=== PATIENT | female | born 2000 | race Caucasian/White ===

== ENCOUNTER 2019-09-21 23:12 | Emergency (ER) | payer BC, OTHER, SELFPAY ==
[2019-09-21 23:16] VITALS: BP 120/61; PULSE 85; RESP 18; TEMP 36.5; O2SAT 100
--- NOTE | 2019-09-22 00:17 | PC.NURSE ---
[facility] notified pt is in the dept.
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
[2019-09-22 03:13] LABS: HIV 1/2 Ab P24 Ag Result Negative (Negative)
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
[2019-09-22 04:05] VITALS: BP 116/60; PULSE 62; RESP 14; O2SAT 98
--- NOTE | 2019-09-22 04:17 | PC.NURSE ---
exam and wound care complete; internal vaginal exam done by Dr. Baez and internal swabs obtained by Dr. Baez. Flagyl given - unable to document on the MAY.
[2019-09-22] MEDS: AZITHROMYCIN 250 MG TABLET 1000 MG PO (04:30)
[2019-09-22] MEDS: cefTRIAXone 250 MG VIAL IM (04:30)
[2019-09-22] MEDS: ONDANSETRON HCL ODT 4 MG TABLET PO (04:30)
[2019-09-22] MEDS: metroNIDAZOLE 250 MG TABLET 2000 MG PO (04:30)
[2019-09-22] MEDS: LIDOCAINE HCL 1% LOCAL INJ 20 ML VIAL (04:30)
[2019-09-22] MEDS: ULIPRISTAL ACETATE 30 MG TABLET PO (04:30)
[2019-09-22] MEDS: DOXYCYCLINE HYCLATE 100 MG TABLET PO (04:30)
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
[2019-09-22] MEDS: EMTRICITABINE-TENOFOVIR 100 MG-150 MG TABLET 1 TAB PO (05:10)
[2019-09-22] MEDS: RALTEGRAVIR 400 MG TABLET PO (05:10)
--- NOTE | 2019-09-22 05:58 | PC.NURSE ---
Pt. selected option C for consent for evidence collection but consented to toxicology -- evidence be collected and tested. Pt. made aware in doing so she was signing consent and providing identifying information. Pt. voiced understanding and signed Option A consent to toxicology testing at 0148.
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
--- NOTE | 2019-09-22 06:22 | PC.NURSE ---
[facility] called, aware consent for advocacy needs to be picked up today and are to contact assistant offset press operator on duty.
--- NOTE | 2019-09-23 11:02 | PC.NURSE ---
Kit, 3 paper bags of evidence, urine specimen and associated paperwork picked up by Officer LESTER [address], [place] [employer].
== END 2019-09-22 05:20 | disposition home or self-care (01) ==
LOC: ANHED 09-22 04:46
PROVIDERS: Emergency Provider Emergency Medicine; PCP Family Medicine
DX: T74.21XA Adult sexual abuse, confirmed, initial encounter (principal); Y07.9 Unspecified perpetrator of maltreatment and neglect; F17.210 Nicotine dependence, cigarettes, uncomplicated
CPT/HCPCS: 36415; 81025; 86703; 96372; 99285; A9270; G0432; J0696

== ENCOUNTER 2020-09-05 18:08 | Emergency (ER) | payer BC, SELFPAY ==
[2020-09-05 18:40] VITALS: BP 123/65; PULSE 92; RESP 18; TEMP 36.6; O2SAT 95
--- NOTE | 2020-09-05 19:30 | ED.GENADULT ---
HPI - General Adult General Chief complaint: Skin/Abscess/Foreign Body Stated complaint: SKIN ABSCESS Time Seen by Provider: 09/05/20 19:11 Source: patient and RN notes reviewed Mode of arrival: ambulatory Limitations: no limitations History of Present Illness HPI narrative: Patient is a 19-year-old female who presents to emergency department with wound to the mid forehead for the last 2 weeks patient notes she has attempted to cedrick the lesion herself patient notes history of staph infection denies fever chills nausea vomiting. Related Data Allergies Allergy/AdvReac Type Severity Reaction Status Date / Time Sulfa (Sulfonamide Allergy Unknown Unknown Verified 09/05/20 18:43 Antibiotics) Review of Systems Review of Systems: All systems reviewed & are unremarkable except as noted in HPI and below PMFSH Surgical History Surgical History History of eye surgery Family History Family History (Updated 12/01/18 @ 16:24 by DOCTOR UNKNOWN) Other Cerebrovascular accident Family history of alcoholism Family history of thyroid disease Social History Social History Smoking status: Current every day smoker Alcohol intake: current Substance use: current Substance use type: marijuana and methamphetamine Gender identity (if verbalized by the patient): Female Exam Narrative: Exam Narrative: GENERAL: Well-appearing, well-nourished, and in no acute distress. HEAD: Normocephalic, atraumatic. EYES: PERRLA and EOMI. ENT: Nares clear, no rhinorrhea or epistaxis. Mucous membranes moist. CHEST: Clear to auscultation. No respiratory distress. No wheezes rales or rhonchi HEART: Regular rate and rhythm. No murmur heard. EXTREMITIES: Normal range of motion. No edema. SKIN: Warm, dry, no rash. 2 cm fluctuant lesion mid forehead with half centimeter open area in the middle of the lesion NEURO: No focal deficits. Alert and oriented x3. PSYCH: Normal mood and affect. Course Course Emergency Course: Lesion of the forehead was I&D to impact in the emergency department wound cultures were obtained medications were given and sent with the patient she agrees to follow-up as instructed Vital Signs Vital signs: Vital Signs Temperature 97.9 F 09/05/20 18:40 Pulse Rate 92 09/05/20 18:40 Respiratory Rate 18 09/05/20 18:40 Blood Pressure 123/65 09/05/20 18:40 Pulse Oximetry 95 09/05/20 18:40 Temperature 97.9 F 09/05/20 18:40 Pulse Rate 92 09/05/20 18:40 Respiratory Rate 18 09/05/20 18:40 Blood Pressure 123/65 09/05/20 18:40 Pulse Oximetry 95 09/05/20 18:40 Procedures Abscess I/D face: Date of Incision: 09/05/20 Time of Incision: 19:32 Local Anesthetic: lidocaine 1% Technique: incised with #11 blade Amount of fluid expressed (mL): 2 Irrigation: No Packing used?: iodoform I&D Results: Pus Complications: pain Medical Decision Making MDM Narrative Medical decision making narrative: I&D of abscess performed in the emergency department will be discharged home with outpatient follow-up agreement with this plan Vital Signs Vital Signs: Vital Signs Temperature 97.9 F 09/05/20 18:40 Pulse Rate 92 09/05/20 18:40 Respiratory Rate 18 09/05/20 18:40 Blood Pressure 123/65 09/05/20 18:40 Pulse Oximetry 95 09/05/20 18:40 Temperature 97.9 F 09/05/20 18:40 Pulse Rate 92 09/05/20 18:40 Respiratory Rate 18 09/05/20 18:40 Blood Pressure 123/65 09/05/20 18:40 Pulse Oximetry 95 09/05/20 18:40 Discharge Plan Discharge Clinical Impression: Abscess of skin or subcutaneous tissue Patient Disposition: Home, Self-Care Condition: Stable Instructions: Antibiotic Form, Abscess (ED) Additional Instructions: Follow up with primary care in the next 2-3 days for re-evaluation and pack
[2020-09-05] MEDS: IBUPROFEN 600 MG TABLET PO (19:38)
[2020-09-05] MEDS: DOXYCYCLINE HYCLATE 100 MG TABLET PO (19:38)
--- NOTE | 2020-09-05 19:42 | PC.NURSE ---
attempted to call pts ride x2 with no answer. Pt ambulated out of the department.
== END 2020-09-05 19:42 | disposition home or self-care (01) ==
PROVIDERS: Emergency Provider Emergency Medicine; PCP Family Medicine
DX: L02.01 Cutaneous abscess of face (principal)
CPT/HCPCS: 10061; 87070; 87075; 87147; 87186; 87205; 99283; A9270

== ENCOUNTER 2020-10-02 18:35 | Emergency (ER) | payer BC, SELFPAY ==
[2020-10-02 18:42] VITALS: BP 119/65; PULSE 79; RESP 16; TEMP 36.6; O2SAT 99
[2020-10-02 18:46] VITALS: BP 119/65; PULSE 79; RESP 16; TEMP 36.6; O2SAT 99
--- NOTE | 2020-10-02 19:12 | ED.GENADULT ---
HPI - General Adult General Chief complaint: Upper Respiratory Infection Stated complaint: Congestion Source: patient Mode of arrival: ambulatory Limitations: no limitations History of Present Illness HPI narrative: Patient presents for evaluation of bilateral ear pain for the last week. She states the pain is constant she is also noted some fluid draining from both ears. She denies any hearing loss or tinnitus. No fever, chills, nausea, vomiting, sore throat, respiratory symptoms. She states she went swimming approximately 1 week ago. She also reports trying to pick at (her) ears . She has not tried any therapies for her symptoms. She would like a script for tylenol. Related Data Allergies Allergy/AdvReac Type Severity Reaction Status Date / Time Sulfa (Sulfonamide Allergy Unknown Unknown Verified 10/02/20 18:42 Antibiotics) Review of Systems Review of Systems: Narrative: CONSTITUTIONAL: Denies fever, chills, or sweats. EYES: Denies visual changes, redness, or discharge. ENT: Reports bilateral otalgia with drainage from both ears. Denies rhinorrhea, congestion, sore throat CARDIOVASCULAR: Denies chest pain, palpitations, or edema. RESPIRATORY: Denies cough or dyspnea. GASTROINTESTINAL: Denies abdominal pain, nausea, vomiting, or diarrhea. GENITOURINARY: Denies dysuria or hematuria. SKIN: Denies rash or itching. MUSCULOSKELETAL: Denies back pain, joint pain, or myalgia. NEUROLOGIC: Denies headache, numbness, dizziness, or weakness. PSYCHIATRIC: Denies anxiety or depression. [facility] Past Medical History Medical History No pertinent past medical history Surgical History Surgical History History of eye surgery Family History Family History Other Cerebrovascular accident Family history of alcoholism Family history of thyroid disease Social History Social History (Updated 10/02/20 @ 19:13 by MANOHAR DaleP, ) Smoking packs per day: 1 Smoking cigarettes per day: 20.0 Smoking status: Current every day smoker Alcohol intake: current Substance use: current Substance use type: marijuana and methamphetamine Living arrangements: alone Gender identity (if verbalized by the patient): Female Spiritual care concerns: No Exam Narrative: Exam Narrative: GENERAL: Well-appearing, well-nourished, and in no acute distress. HEAD: Normocephalic, atraumatic. EYES: PERRLA and EOMI. ENT: Nares clear, no rhinorrhea or epistaxis. Mucous membranes moist. Oropharynx without tonsillar hypertrophy exudate or other lesions. Bilateral TMs pearly martinez nonbulging. No ear canals are edematous and there is white exudate noted in both ear canals NECK: Supple. No adenopathy or masses. No carotid bruits or JVD CHEST: Clear to auscultation. No respiratory distress. No wheezes rales or rhonchi HEART: Regular rate and rhythm. No murmur heard. Normal peripheral pulses. ABDOMEN: Soft, nontender, nondistended, normal active bowel sounds. EXTREMITIES: Normal range of motion. No edema. SKIN: Warm, dry, no rash. NEURO: No focal deficits. Alert and oriented x3. PSYCH: Normal mood and affect. Course Course Emergency Course: This is a 19-year-old female who presents with complaints of bilateral ear pain and drainage. Physical exam is consistent with otitis externa. Will prescribe some otic preparation antibiotics and then also send her home with some Tylenol per request. She should follow-up outpatient for further evaluation and treatment return for worsening symptoms. Patient agreement plan of care. Vital Signs Vital signs: Vital Signs Temperature 36.6 C 10/02/20 18:42 Pulse Rate 79 10/02/20 18:42 Respiratory Rate 16 10/02/20 18:42 Blood Pressure 119/65 10/02/20 18:42 Pulse Oximetry 99 10/02/20 18:42 Temperat
== END 2020-10-02 19:18 | disposition home or self-care (01) ==
PROVIDERS: Emergency Provider Nurse Practitioner; PCP Family Medicine
DX: H60.93 Unspecified otitis externa, bilateral (principal); F17.210 Nicotine dependence, cigarettes, uncomplicated
CPT/HCPCS: 99213; G0463

== ENCOUNTER 2021-02-18 17:11 | Emergency (ER) | payer BC, SELFPAY ==
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
[2021-02-18 17:19] VITALS: BP 137/92; PULSE 87; RESP 18; TEMP 36.1; O2SAT 99
[2021-02-18] MEDS: ONDANSETRON HCL ODT 4 MG TABLET PO (17:47)
[2021-02-18] MEDS: MAG HYDROX/AL HYDROX/SIMETH 30 ML UDC PO (17:48)
[2021-02-18] MEDS: LIDOCAINE HCL 2% VISC SOLN 15 ML UDC PO (17:48)
== END 2021-02-18 18:30 | disposition home or self-care (01) ==
PROVIDERS: Emergency Provider Nurse Practitioner Family; PCP Family Medicine
DX: K21.9 Gastro-esophageal reflux disease without esophagitis (principal); F17.210 Nicotine dependence, cigarettes, uncomplicated
CPT/HCPCS: 81003; 81025; 87077; 87086; 87088; 87186; 99213; A9270; G0463

== ENCOUNTER 2021-10-16 16:48 | Emergency (ER) | payer BC, SELFPAY ==
--- NOTE | ~2021-10-16 | XR_ITS ---
XR foot LT min 3V 10/16/2021 17:10 Indication: Left foot pain Procedure: 4 views left foot Comparison: No prior studies for comparison. Findings: There is a mildly displaced oblique fracture involving the distal aspect of the fifth metat arsal. No intra-articular extension. No other fracture or dislocation. Lisfranc joint is intact. Impression: 1: Mildly displaced oblique extra-articular fracture distal aspect of the left fifth metatarsal. Reviewed, dictated and finalized at location A. Impression: 1: Mildly displaced oblique extra-articular fracture distal aspect of the left fifth metatarsal.
[2021-10-16 16:50] VITALS: BP 132/85; PULSE 117; RESP 15; TEMP 36.9; O2SAT 100
--- NOTE | 2021-10-16 17:13 | ED.LOWEXIN ---
HPI - Extremity Injury (Lower) General Chief Complaint: Extremity Injury, Lower Stated Complaint: Possible Broken Left Foot Time Seen by Provider: 10/16/21 16:58 Source: RN notes reviewed History of Present Illness HPI Narrative: Patient presents emergency department from home for left foot pain. Patient states she was trying to sneak down the stairs in the [place] last night when she tripped and fell down approximately 3 stairs. She states she rolled onto her left foot at that time and has had pain in the left lateral foot states the pain is worse with ambulating but improves when she sits or is off her feet she denies any other trauma or injury she states she did not take anything for the pain denies any numbness or tingling in the extremities Related Data Allergies Allergy/AdvReac Type Severity Reaction Status Date / Time Sulfa (Sulfonamide Allergy Unknown Unknown Verified 02/18/21 17:25 Antibiotics) Review of Systems Review of Systems: Gen.: Denies fevers or chills Musculoskeletal: See HPI Neuro: Denies numbness, tingling, weakness Skin: Denies rash Endo: Denies DM PMFSH Past Medical History Medical History No pertinent past medical history Surgical History Surgical History History of eye surgery Family History Family History Other Cerebrovascular accident Family history of alcoholism Family history of thyroid disease Social History Social History Smoking packs per day: 1 Smoking cigarettes per day: 20.0 Smoking status: Current every day smoker Alcohol intake: current Substance use: current Substance use type: marijuana and methamphetamine Gender identity (if verbalized by the patient): Female Spiritual care concerns: No Exam Narrative: APPEARANCE: No acute distress, nontoxic, resting in bed Eyes: EOMI HEENT: Normocephalic, atraumatic, RESPIRATORY: No respiratory distress MUSCULOSKELETAl: Tender palpation over the left dorsal lateral foot region of the fifth metatarsal mild swelling no ecchymosis no tenderness of the remainder of the foot no tenderness of the ankle or knee no proximal fibular tenderness dorsalis pedis pulse 2+ neurovascular NEURO: Awake and alert. Following commands, speech normal, no focal deficits SKIN:: Warm, dry. Normal Color no rash or lesions Course Course Emergency Course: Discussed with patient results of workup and diagnosis. Discussed need for follow-up with primary care, proper use of medication, and reasons to return to the emergency department. Patient understands and agrees to current treatment plan Vital Signs Vital signs: Vital Signs Temperature 98.4 F 10/16/21 16:50 Pulse Rate 117 H 10/16/21 16:50 Respiratory Rate 15 10/16/21 16:50 Blood Pressure 132/85 10/16/21 16:50 Pulse Oximetry 100 10/16/21 16:50 Temperature 98.4 F 10/16/21 16:50 Pulse Rate 117 H 10/16/21 16:50 Respiratory Rate 15 10/16/21 16:50 Blood Pressure 132/85 10/16/21 16:50 Pulse Oximetry 100 10/16/21 16:50 MDM - Extremity Injury (Lower) Imaging Data Radiologist's impression: ITS Impressions Foot X-Ray 10/16/21 17:11 Impression: 1: Mildly displaced oblique extra-articular fracture distal aspect of the left fifth metatarsal. Discharge Plan Discharge Clinical Impression: Fracture of fifth metatarsal bone of left foot Qualifiers: Encounter type: initial encounter Fracture type: closed Fracture alignment: displaced Qualified Code(s): S92.352A - Displaced fracture of fifth metatarsal bone, left foot, initial encounter for closed fracture Patient Disposition: Home, Self-Care Condition: Stable Instructions: Antibiotic Form, Foot Fracture in Adults (ED) Additional Instructions: Return for
== END 2021-10-16 17:40 | disposition home or self-care (01) ==
LOC: ANHED 17:26
PROVIDERS: Emergency Provider Emergency Medicine; PCP Family Medicine
DX: S92.352A Displaced fracture of fifth metatarsal bone, left foot, initial encounter for closed fracture (principal); F17.210 Nicotine dependence, cigarettes, uncomplicated; W10.9XXA Fall (on) (from) unspecified stairs and steps, initial encounter
CPT/HCPCS: 73630; 99284

== ENCOUNTER 2023-11-07 16:47 | Emergency (ER) | payer BC, SELFPAY ==
[2023-11-07 16:53] VITALS: BP 114/64; PULSE 97; RESP 16; TEMP 36.6; O2SAT 100
--- NOTE | 2023-11-07 17:19 | ED.WOUNDLAC ---
HPI - Wound/Laceration General Chief Complaint: Wound/Laceration Stated Complaint: Wound Check/Sore Throat Source: patient Mode of arrival: ambulatory Limitations: no limitations History of Present Illness HPI narrative: 23-year-old female presented for complaint of an open wound to the right thigh worsening over the past 2 weeks. She reports drainage over the past couple of days. She has picked at it and attempted to drain it herself. She has been cleaning it daily with hydrogen peroxide. patient also reports scattered boils under axilla, stating she gets cysts often and was told she might have HS. Patient also reports a sore throat. She is concerned for COVID. She denies shortness of breath, wheezing, nausea, vomiting, fevers or lethargy. Related Data Allergies Allergy/AdvReac Type Severity Reaction Status Date / Time Sulfa (Sulfonamide Allergy Unknown Difficulty Verified 11/07/23 17:05 Antibiotics) Breathing Review of Systems Review of Systems: CONSTITUTIONAL: Denies body aches, fever, chills, or sweats. EYES: Denies visual changes, redness, or discharge. ENT: Denies rhinorrhea, congestion CARDIOVASCULAR: Denies chest pain, palpitations, or edema. RESPIRATORY: Denies cough or dyspnea. GASTROINTESTINAL: Denies abdominal pain, nausea, vomiting, or diarrhea. SKIN: Reports skin wound right thigh MUSCULOSKELETAL: Denies back pain, joint pain, or myalgia. NEUROLOGIC: Denies headache, numbness, tingling, or weakness. [facility] Past Medical History Medical History Abnormality of heart beat Bleeding nose Hyperthyroidism No pertinent past medical history Surgical History Surgical History History of eye surgery Strabismus 2007 Family History Family History Other Cerebrovascular accident Family history of alcoholism Family history of thyroid disease Social History Social History Smoking packs per day: 1 Smoking cigarettes per day: 20.0 Years smoked: 7 Smoking pack-years: 7.00 Smoking status: Current every day smoker Tobacco type: cigarettes Alcohol intake: current Substance use: current Substance use type: marijuana and methamphetamine Living arrangements: alone Occupation/Education: occupation 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 Please see nursing chart for further information. There is no relevant family history pertinent to the presenting complaint Exam Narrative: GENERAL: Well-appearing ENT: Mucous membranes moist. Oropharynx without edema, erythema or lesions. NECK: Supple. No lymphadenopathy CHEST: Clear to auscultation. HEART: Regular rate and rhythm. SKIN: Warm, dry. right medial thigh: [id number] diameter area of erythema, center with 1cm diameter open wound 0.5cm deep with purulent drainage; surrounding skin is tender, no streaking. Bruising noted to bilateral upper arms. Right axilla with firm abscess, tender. NEURO: Alert and oriented x3. Course Course Emergency Course: Patient is aware of diagnosis, understands and agrees to treatment plan. Anticipatory guidance given. Patient agrees to follow-up as directed and is aware of reasons to seek care at the emergency department. Portions of this record may have been created with voice recognition software Level of Care: Express Care Visit Vital Signs Vital signs: Vital Signs Temperature 97.8 F 11/07/23 16:53 Pulse Rate 97 11/07/23 16:53 Respiratory Rate 16 11/07/23 16:53 Blood Pressure 114/64 11/07/23 16:53 Pul
== END 2023-11-07 17:59 | disposition home or self-care (01) ==
PROVIDERS: Emergency Provider Nurse Practitioner Family; PCP Family Medicine
DX: L02.415 Cutaneous abscess of right lower limb (principal); Z20.822 Contact with and (suspected) exposure to COVID-19; F17.210 Nicotine dependence, cigarettes, uncomplicated; F12.90 Cannabis use, unspecified, uncomplicated; F15.90 Other stimulant use, unspecified, uncomplicated; E05.90 Thyrotoxicosis, unspecified without thyrotoxic crisis or storm
CPT/HCPCS: 87426; 99213; G0463

== ENCOUNTER 2024-06-09 09:31 | Emergency (ER) | payer BC, SELFPAY ==
[2024-06-09] VITALS (10 sets, daily range): BP systolic 114–149; BP diastolic 61–97; PULSE 93–135; RESP 9–20; TEMP 36.6; O2SAT 100
--- NOTE | ~2024-06-09 | CT_ITS ---
Clinical Indication: Chest pain CT Scan of the Chest with Contrast: Technique: Contiguous sections were acquired throughout the chest after intravenous administration of 100 cc of Omnipaque 350. Dose reduction technique was used on this scan by utilizing automated expos ure control and iterative reconstruction technique. The dose-length product (DLP) was 316.78 mGy-cm. Findings: There is no evidence of any significant mediastinal, hilar or axillary lymphadenopathy. There is no f illing defect in the pulmonary arterial tree to suggest pulmonary embolus. There is no evidence of ao rtic dissection or aneurysm. There is no evidence of pleural or pericardial effusion. The lungs are clear. No pulmonary nodules or infiltrates are noted. Images through the upper abdomen reveal no abnormalities. Impression: No evidence of pulmonary embolus, aortic dissection, or aortic aneurysm. Clear lungs. Reviewed, dictated and finalized at [facility]. Impression: No evidence of pulmonary embolus, aortic dissection, or aortic aneurysm. Clear lungs.
--- NOTE | ~2024-06-09 | XR_ITS ---
Clinical Indication: Chest pain PA and lateral views of the chest: Comparison: None Findings: The lungs are clear, without evidence of focal consolidation or pleural effusion. Cardiome diastinal silhouette is within normal limits. Bones and soft tissues are unremarkable. Impression: Normal chest. Reviewed, dictated and finalized at location . Impression: Normal chest.
--- NOTE | 2024-06-09 09:32 | ECG_ITS ---
Test Date: 2024-06-09 09:42:58 Measurements Intervals [place] Rate: 147 P: 0 OR: 0 QRS: 78 QRSD: 78 T: 64 QT: 320 QTc: 502 Interpretive Statements SINUS TACHYCARDIA WITH ATRIAL PREMATURE CONTRACTIONS NONSPECIFIC ST & T-WAVE ABNORMALITY ABNORMAL ECG Electronically Signed On 06-10-2024 11:41:13 CDT by Feliz Becerra M.D.
--- NOTE | 2024-06-09 10:17 | ED.CHESTPAIN ---
HPI - Chest Pain General Chief Complaint: Chest Pain Stated Complaint: chest pain, dyspnea Time Seen by Provider: 06/09/24 10:16 Source: patient Mode of arrival: ambulatory Limitations: no limitations History of Present Illness HPI narrative: This is a 23 year old female who presents to the ED for chief complaint of chest pain beginning around midnight. Patient states that she was lying down getting ready to go to sleep when she started have pain on the left side of her chest. Patient states the pain does not radiate and it feels like a spasm like pain. States the pain has been getting progressively worse since onset. States she has never had pain like this. Endorses palpitations with racing heart beat. She does endorse pain with deeper breathing. Denies recent illness, fevers, chills, leg swelling, cough, nausea, vomiting, syncope, numbness, weakness, abdominal pain. She does state that the pain started after smoking marijuana with a friend last night. Denies any alcohol or other drug use. Related Data Allergies Allergy/AdvReac Type Severity Reaction Status Date / Time Sulfa (Sulfonamide Allergy Unknown Difficulty Verified 06/09/24 09:34 Antibiotics) Breathing Review of Systems Review of Systems: All systems as dictated in HPI [facility] Past Medical History Medical History Abnormality of heart beat Bleeding nose Hyperthyroidism No pertinent past medical history Surgical History Surgical History History of eye surgery Strabismus 2007 Family History Family History Other Cerebrovascular accident Family history of alcoholism Family history of thyroid disease Social History Social History Smoking packs per day: 1 Smoking cigarettes per day: 20.0 Years smoked: 7 Smoking pack-years: 7.00 Smoking status: Current every day smoker Tobacco type: cigarettes Alcohol intake: current Substance use: current Substance use type: marijuana and methamphetamine Living arrangements: alone Occupation/Education: occupation 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 HEAD: Normocephalic, atraumatic. EYES: PERRLA and EOMI. ENT: Nares clear, no rhinorrhea or epistaxis. Mucous membranes moist. Oropharynx without tonsillar hypertrophy exudate or other lesions. NECK: Supple. No adenopathy or masses. CHEST: No respiratory distress. Clear to auscultation. No wheezes rales or rhonchi HEART: Regular rate and rhythm. No murmur heard. Normal peripheral pulses. ABDOMEN: Soft, nontender, nondistended, normal active bowel sounds. MSK: Normal range of motion. No edema. SKIN: Warm, dry, no rash. NEURO: Alert and oriented x4. No focal deficits. PSYCH: Normal mood and affect. Course Vital Signs Vital signs: Vital Signs Temperature 97.9 F 06/09/24 09:34 Pulse Rate 93 06/09/24 09:34 Respiratory Rate 20 06/09/24 09:34 Blood Pressure 149/65 H 06/09/24 09:34 Pulse Oximetry 100 06/09/24 09:34 Oxygen Delivery Room Air 06/09/24 09:34 Temperature 97.9 F 06/09/24 09:34 Pulse Rate 98 06/09/24 13:45 Respiratory Rate 18 06/09/24 13:45 Blood Pressure 133/61 06/09/24 13:45 Pulse Oximetry 100 06/09/24 13:45 Oxygen Delivery Room Air 06/09/24 10:44 MDM - Chest Pain MDM Narrative Medical decision making narrative: This is a 23-year-old female who presents to the ED for chief complaint of chest pain and tightness beginning around midnight last night. Vitals on arrival show elevated heart rate but otherwise normal.. EKG shows reading out as possible atrial flutter, however P waves are seen on the EKG. Lab work is unremarkable overall including negative troponin and negative BNP. Viral swabs negative. Chest x-ray shows no acute findings. CTA chest was ordered due to patient having tachycardia on arrival. It is grossly negative for acute cardiopulmonary abnormalities today. Patient only had slight improvement of pain with original Dilaudid and Zofran. She was given fluids as well as Toradol and Ativan. She started to feel much better. Suspect anxiety is a large component of her pain today. Patient will be discharged in stable condition. Supportive measures discussed and return precautions given. Patient is understanding and agreeable with plan for discharge with PCP follow-up. Lab Data 06/09/24 11:01 06/09/24 11:02 Labs: Lab Results 06/09/24 06/09/24 06/09/24 Range/Units 11:01 11:02 11:02 WBC 9.5 (4.5-10.0) K/mm3 RBC 4.84 (4.2-5.4) M/mm3 Hgb 14.0 (12.0-15.0) g/dL Hct 41.0 (37.0-47.0) % MCV 84.7 (80-100) fl MCH 28.9 (26-34) pg MCHC 34.1 (32-36) g/dl RDW 12.3 (11.5-14.5) % Plt Count 224 (150-375) k/mm3 MPV 10.6 H (7.4-10.4) fl Immature Gran % (Auto) 0.2 (0-0.5) % Neut % (Auto) 76.7 H (45.5-73.1) % Lymph % (Auto) 17.9 L (18.3-44.2) % [place] % (Auto) 4.6 (2.6-8.5) % Eos % (Auto) 0.5 (0-4.4) % Baso % (Auto) 0.1 L (0.2-1.2) % Lymph # (Auto) 1.70 (0.9-3.2) K/mm3 [place] # (Auto) 0.4 (0.1-0.6) K/mm3 Eos # (Auto) 0.1 (0-0.3) K/mm3 Baso # (Auto) 0.0 (0.0-0.1) K/mm3 Abs Immat Gran (auto) 0.02 (0.00-0.031) K/mm3 Absolute Neuts (auto) 7.3 H (1.3-6.7) K/mm3 Absolute Nucleated RBC 0.000 (0.0-0.012) K/mm3 Nucleated RBC % 0.0 (0.0-0.2) % PT 13.7 (11.1-14.7) Seconds INR 1.0 APTT 34.4 (22.3-36.8) Seconds Sodium 141 (137-145) mmol/L Potassium 3.7 (3.4-5.0) mmol/L Chloride 108 H (98-107) mmol/L Carbon Dioxide 23 (22-30) mmol/L Anion Gap 10 (4-12) mmol/L BUN 12 (7-17) mg/dL Creatinine 0.73 (0.7-1.0) mg/dL Estim Creat Clear Calc 110 ml/min Estimated GFR > 60 (59 - ) Glucose 96 (65-110) mg/dL Calcium 8.9 (8.4-10.2) mg/dL Total Bilirubin 0.4 (0.2-1.3) mg/dL AST 36 (14-36) U/L ALT 66 H (6-35) U/L Alkaline Phosphatase 70 (38-126) U/L Troponin I < 0.012 (0.000-0.034) ng/mL NT-Pro-B Natriuret Pep 33 Cancelled (19.9-100) pg/mL Total Protein 7.0 (6.3-8.2) g/dL Albumin 4.3 (3.5-5.1) g/dL Lipase 57 (23-300) U/L POC Urine HCG, Qual (Negative) Influenza A (RT-PCR) (Negative) Influenza B (RT-PCR) (Negative) RSV (RT-PCR) (Negative) SARS-CoV-2 RNA (RT-PCR) (Negative) 06/09/24 06/09/24 Range/Units 11:09 12:05 WBC (4.5-10.0) K/mm3 RBC (4.2-5.4) M/mm3 Hgb (12.0-15.0) g/dL Hct (37.0-47.0) % MCV (80-100) fl MCH (26-34) pg MCHC (32-36) g/dl RDW (11.5-14.5) % Plt Count (150-375) k/mm3 MPV (7.4-10.4) fl Immature Gran % (Auto) (0-0.5) % Neut % (Auto) (45.5-73.1) % Lymph % (Auto) (18.3-44.2) % [place] % (Auto) (2.6-8.5) % Eos % (Auto) (0-4.4) % Baso % (Auto) (0.2-1.2) % Lymph # (Auto) (0.9-3.2) K/mm3 [place] # (Auto) (0.1-0.6) K/mm3 Eos # (Auto) (0-0.3) K/mm3 Baso # (Auto) (0.0-0.1) K/mm3 Abs Immat Gran (auto) (0.00-0.031) K/mm3 Absolute Neuts (auto) (1.3-6.7) K/mm3 Absolute Nucleated RBC (0.0-0.012) K/mm3 Nucleated RBC % (0.0-0.2) % PT (11.1-14.7) Seconds INR APTT (22.3-36.8) Seconds Sodium (137-145) mmol/L Potassium (3.4-5.0) mmol/L Chloride (98-107) mmol/L Carbon Dioxide (22-30) mmol/L Anion Gap (4-12) mmol/L BUN (7-17) mg/dL Creatinine (0.7-1.0) mg/dL Estim Creat Clear Calc ml/min Estimated GFR (59 - ) Glucose (65-110) mg/dL Calcium (8.4-10.2) mg/dL Total Bilirubin (0.2-1.3) mg/dL AST (14-36) U/L ALT (6-35) U/L Alkaline Phosphatase (38-126) U/L Troponin I (0.000-0.034) ng/mL NT-Pro-B Natriuret Pep (19.9-100) pg/mL Total Protein (6.3-8.2) g/dL Albumin (3.5-5.1) g/dL Lipase (23-300) U/L POC Urine HCG, Qual Negative (Negative) Influenza A (RT-PCR) Negative (Negative) Influenza B (RT-PCR) Negative (Negative) RSV (RT-PCR) Negative (Negative) SARS-CoV-2 RNA (RT-PCR) Negative (Negative) Discharge Plan Discharge Clinical Impression: Chest pain Patient Disposition: Home, Self-Care Condition: Stable Instructions: Antibiotic Form, Chest Pain (ED) Additional Instructions: Exam and imaging today are reassuring overall. Follow-up with PCP this week. Use Tylenol 500 mg and ibuprofen 600 mg for any onset of pain.. Avoid using any illicit substances. If you have any new or worsening symptoms please return to the ER for further evaluation. Patient Language: U[place] Prescriptions: No Action doxycycline hyclate 100 mg tablet 100 mg PO BID 10 Days Qty: 20 0RF Follow-up/Referrals: Brayan Rosario MD [Physician] - Jacques Gilliland MD [Physician] - Time of Disposition: 13:24
--- OUTSIDE RECORDS SUMMARY | 2024-06-09 10:21 | XMS_ITS | Clinical Summary ---
Author Organization [facility] Address [address] [place] [address] Care Team Providers Care Marine Engine Machinist Apprentice Name Role Phone Brayan Rosario MD Primary Care Provider [phone] Source Comments [facility],non-owned Affiliates and Associated Physician Practices is amultiple site organization consisting of ambulatory clinics and hospital sitesin [place], [place], [place] and [place]. This disclosure is being madepursuant to the Care Everywhere program and may not contain all information available regarding this patient. Last updated 17.[facility] Allergies Active Allergy Reactions Criticality Noted Date Comments Sulfa Drugs Urticaria Medium 04/14/2018 Rash, swellling Medications * Be aware that medications may not be up to date on this document. Alwaysverify current medications with the patient. 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 Immunizations Name Administration Dates Next Due INFLUENZA VACCINE 01/27/2018 Family History Medical History Relation Name Comments Thyroid Disease Mother Macular Degeneration Paternal Grandmother Thyroid Disease Paternal Grandmother Relation Name Status Comments Mother Paternal Grandmother Social History Tobacco Use Types Packs/Day Years Used Date Smoking Tobacco: Every Day Cigarettes 0.5 3 Smokeless Tobacco: Never Alcohol Use Standard Drinks/Week Comments No 0 (1 standard drink = 0.6 oz pur e alcohol) Sex and Gender Information Value Date Recorded Sex Assigned at Not on file Gender Identity Not on file Sexual Orientation Not on file Plan of Treatment Health Maintenance Due Date Last Done Comments PAP SMEAR 1999 HIV SCREENING 10/20/2014 HPV VACCINE (1 - 3-dose series) 10/20/2014 CHLAMYDIA/GONORRHEA SCREENING 2015 HEPATITIS C SCREENING 10/16/2017 DTAP/TDAP/TD VACCINES (1 - Tdap) 10/20/2018 HEPATITIS B VACCINE (1 of 3 - 19+ 3-dose series) 10/20/2018 COVID-19 VACCINE (1 - 2023-2 5 season) 2023 INFLUENZA VACCINE (#1) 2023 01/27/2018 DEPRESSION SCREENING 03/25/2024 ZOSTER VACCINE (1 of 2) 10/20/2049 HIB VACCINE Aged Out No longer eligi ble based on patient's age to complete this topic MENINGOCOCCAL (Group B) VACC INE SHARED DECISION-MAKING Aged Out No longer eligibl e based on patient's age to complete this topic MENINGOCOCCAL GROUPS A/C/Y/W VACCINE Aged Out No longer eligible b ased on patient's age to complete this topic PNEUMOCOCCAL VACCINE Aged Out No long er eligible based on patient's age to complete this topic Care Teams Marine Engine Machinist Apprentice Relationship Specialty Start Date End Date Brayan Rosario MD PCP - General 12/30/17
--- NOTE | 2024-06-09 10:40 | PC.NURSE ---
4 different RNs tried to get IV access on the pt with no success. vascular access called at this time
[2024-06-09] MEDS: ONDANSETRON INJ 4 MG/2 ML VIAL IV PUSH (11:14)
[2024-06-09] MEDS: HYDROmorphone HCL INJ (*CRX) 1 MG/ML SYR 0.5 MG IV PUSH (11:14)
[2024-06-09] MEDS: SODIUM CHLORIDE 0.9% IV 1,000 ML 999 ML IV CONT (11:15)
[2024-06-09 11:18] LABS: Basophils Percent Auto 0.1 % (0.2-1.2); Eosinophils Absolute Auto 0.1 K/mm3 (0-0.3); Eosinophils Percent Auto 0.5 % (0-4.4); Immature Granulocyte Absolute 0.02 K/mm3 (0.00-0.031); Immature Granulocyte Percent A 0.2 % (0-0.5); Lymphocytes Percent Auto 17.9 % (18.3-44.2); Mean Corpuscular HGB Conc 34.1 g/dl (32-36); Mean Corpuscular Hemoglobin 28.9 pg (26-34); Mean Corpuscular Volume 84.7 fl (80-100); Mean Platelet Volume 10.6 fl (7.4-10.4); Monocytes Absolute Auto 0.4 K/mm3 (0.1-0.6); Monocytes Percent Auto 4.6 % (2.6-8.5); Neutrophils Absolute Auto 7.3 K/mm3 (1.3-6.7); Neutrophils Percent Auto 76.7 % (45.5-73.1); Platelet Count Result 224 k/mm3 (150-375); Red Blood Count 4.84 M/mm3 (4.2-5.4); Red Cell Distribution Width 12.3 % (11.5-14.5); White Blood Count 9.5 K/mm3 (4.5-10.0)
[2024-06-09 11:28] LABS: Alanine Aminotransferase 66 U/L (6-35); Albumin Level 4.3 g/dL (3.5-5.1); Alkaline Phosphatase 70 U/L (38-126); Anion Gap 10 mmol/L (4-12); Aspartate Amino Transferase 36 U/L (14-36); Bilirubin,Total 0.4 mg/dL (0.2-1.3); Blood Urea Nitrogen 12 mg/dL (7-17); Calcium 8.9 mg/dL (8.4-10.2); Carbon Dioxide 23 mmol/L (22-30); Chloride 108 mmol/L (98-107); Estimated CRCL calculation 110 ml/min; Estimated Glomerular Filt Rate > 60; Glucose 96 mg/dL (65-110); Lipase 57 U/L (23-300); Potassium 3.7 mmol/L (3.4-5.0); Sodium 141 mmol/L (137-145)
[2024-06-09 11:33] LABS: Prothrombin Time 13.7 Seconds (11.1-14.7)
[2024-06-09 11:34] LABS: Partial Thromboplastin Time 34.4 Seconds (22.3-36.8)
[2024-06-09 11:40] LABS: NT Pro B Type Natriuretic Pept 33 pg/mL (19.9-100); Troponin I < 0.012 ng/mL (0.000-0.034)
[2024-06-09 12:05] LABS: Influenza A QL RT-PCR Negative (Negative); Influenza B QL RT-PCR Negative (Negative); RSV RNA, RT-PCR Negative (Negative); SARS-CoV-2 RNA PCR Negative (Negative)
--- OUTSIDE RECORDS SUMMARY | 2024-06-09 12:06 | XMS_ITS | Clinical Summary ---
Author Organization [facility] Address [address] [place] [address] Care Team Providers Care Cosmetic Consultant Name Role Phone Brayan Rosario MD Primary Care Provider [phone] Source Comments [facility],non-owned Affiliates and Associated Physician Practices is amultiple site organization consisting of ambulatory clinics and hospital sitesin [place], [place] and [place]. This disclosure is being madepursuant to the Care Everywhere program and may not contain all information available regarding this patient. Last updated 17.[facility] Allergies Active Allergy Reactions Criticality Noted Date [...] age to complete this topic Care Teams Cosmetic Consultant Relationship Specialty Start Date End Date Brayan Rosario MD PCP - General 12/30/17
[2024-06-09 12:07] LABS: BEDSIDEPREGUCG Negative (Negative)
[2024-06-09] MEDS: KETOROLAC 30 MG/ML VIAL (*BKC) IV PUSH (12:57)
[2024-06-09] MEDS: LORazepam INJ (*CRX) 2 MG/ML VIAL 0.5 MG IV PUSH (12:58)
== END 2024-06-09 13:58 | disposition home or self-care (01) ==
PROVIDERS: Student in an Organized Health Care Education/Training Program; Emergency Provider Physician Assistant
DX: R07.9 Chest pain, unspecified (principal); E05.90 Thyrotoxicosis, unspecified without thyrotoxic crisis or storm; Z20.822 Contact with and (suspected) exposure to COVID-19; F17.210 Nicotine dependence, cigarettes, uncomplicated; R00.0 Tachycardia, unspecified; I49.1 Atrial premature depolarization
CPT/HCPCS: 36415; 71046; 71275; 80053; 81025; 83690; 83880; 84484; 85025; 85610; 85730; 87637; 93005; 96361; 96374; 96375; 99284; J1171; J1885; J2060; J2405; J7030; Q9967

== ENCOUNTER 2024-07-10 22:37 | Emergency (ER) | payer BC, SELFPAY ==
--- OUTSIDE RECORDS SUMMARY | 2024-07-10 22:39 | XMS_ITS | Clinical Summary ---
Author Organization [facility] Address [address] [place] [address] Care Team Providers Care Braille Translator Name Role Phone Brayan Rosario MD Primary Care Provider [phone] Source Comments [facility],non-owned Affiliates and Associated Physician Practices is amultiple site organization consisting of ambulatory clinics and hospital sitesin [place], [place], [place] and [place]. This disclosure is being madepursuant to the Care Everywhere program and may not contain all information available regarding this patient. Last updated 17.[facility] Allergies Active Allergy Reactions Criticality Noted Date Comments Sulfa Drugs Urticaria Medium 04/14/2018 Rash, swellling Medications * Be aware that medications may not be up to date on this document. Alwaysverify current medications with the patient. 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 Immunizations Immunization Administration Dates Next Due INFLUENZA VACCINE 01/27/2018 [...] drink = 0.6 oz pur e alcohol) Comments Unknown Sex and Gender Information Value Date Recorded Sex Assigned at Not on file Legal Sex Female 11:42 AM CDT Gender Identity Not on file Sexual Orientation [...] VACCINE (1 - 2023-2 5 season) 2023 DEPRESSION SCREENING 03/25/2024 INFLUENZA VACCINE (Season Ended) 2024 01/28/20 18 ZOSTER VACCINE (1 of 2) 10/20/2049 HIB [...] on patient's age to complete this topic Insurance ANTHEM Care Teams Braille Translator Relationship Specialty Start Date End Date Brayan Rosario MD PCP - General 12/30/17
[2024-07-10 22:46] VITALS: BP 157/89; PULSE 104; RESP 20; TEMP 35.9; O2SAT 96
--- NOTE | 2024-07-10 22:47 | PC.NURSE ---
covid swab sent to [facility]
--- NOTE | 2024-07-10 22:49 | ED_ITS ---
HPI - Nausea/Vomiting/Diarrhea General Chief complaint: Nausea/Vomiting/Diarrhea Stated complaint: VOMITING, RASH Time Seen by Provider: 07/10/24 22:49 Source: patient History of Present Illness HPI Narrative: 23 years old white female came to the emergency room by private car complaining of feeling indigestion, like acid reflux, associated with nausea, later vomited once. She denies any fever, chills. She denies vaginal bleeding or discharge or urinary symptoms or sick contact Related Data Allergies Allergy/AdvReac Type Severity Reaction Status Date / Time Sulfa (Sulfonamide Allergy Unknown Difficulty Verified 06/09/24 09:34 Antibiotics) Breathing Review of Systems Review of Systems: All systems reviewed & are unremarkable except as noted in HPI and below PMFSH Past Medical History Medical History Abnormality of heart beat Bleeding nose Hyperthyroidism No pertinent past medical history Surgical History Surgical History History of eye surgery Strabismus 2007 Family History Family History Other Cerebrovascular accident Family history of alcoholism Family history of thyroid disease Social History Social History Smoking packs per day: 1 Smoking cigarettes per day: 20.0 Years smoked: 7 Smoking pack-years: 7.00 Smoking status: Current every day smoker Tobacco type: cigarettes Alcohol intake: current Substance use: current Substance use type: marijuana and methamphetamine Living arrangements: alone Occupation/Education: occupation 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 Musculoskeletal: Normal range of motion, nontender back Neurologic: Alert and oriented ?3, [employer] is normal as tested, no gross motor deficit Course Vital Signs Vital signs: Vital Signs Temperature 35.9 C L 07/10/24 22:46 Pulse Rate 104 H 07/10/24 22:46 Respiratory Rate 20 07/10/24 22:46 Blood Pressure 157/89 H 07/10/24 22:46 Pulse Oximetry 96 07/10/24 22:46 Oxygen Delivery Room Air 07/10/24 22:46 Temperature 35.9 C L 07/10/24 22:46 Pulse Rate 104 H 07/10/24 22:46 Respiratory Rate 20 07/10/24 22:46 Blood Pressure 157/89 H 07/10/24 22:46 Pulse Oximetry 96 07/10/24 22:46 Oxygen Delivery Room Air 07/10/24 22:46 MDM - Nausea/Vomiting/Diarrhea MDM Narrative Medical decision making narrative: patient came with as the reflux like feeling plus nausea plus vomiting once few hours prior to arrival to the emergency room. Vital signs showing blood pressure 157/89, heart rate 104. Physical examination showing some tenderness in the epigastric area, restless patient. Differential diagnosis include GERD, viral infection, electrolyte imbalance, dehydration, , drug related symptoms, pancreatitis, cholecystitis, constipation, diverticulitis, colitis patient declined any blood workup today or any imaging would like have something to stop her nausea. Eventually agreed for respiratory viral panel, urinalysis and urine test. Differential Diagnosis Differential diagnosis: Likely other ( as above) Medical Records Attestation: I reviewed the patient's medical records. Lab Data Labs: Lab Results 07/10/24 07/10/24 Range/Units 23:00 23:08 Urine Color Yellow (Yellow) Urine Appearance Clear (Clear) Urine pH 7.0 (5.0-8.0) Ur Specific Amelia 1.015 (1.010-1.020) Urine Protein Trace H (Negative) Urine Glucose (UA) Negative (Negative) Urine Ketones 1+ H (Negative) Ur Blood (Man) Negative (Negative) Urine Nitrate Negative (Negative) Urine Bilirubin Negative (Negative) Urine Urobilinogen 4.0 H (0.2-1.0) mg/dL Leukocyte Esterase Rfl Trace H (Negative) RADHA/UL Urine RBC 0-2 (0-2) /hpf Urine WBC 0-3 (0-3) /hpf Ur Squamous Epith Cells Rare (Few) /hpf Urine Bacteria Trace (None) /hpf Urine Test Negative Urine Opiates Screen Negative (Negative) Urine Methadone Screen Negative (Negative) Ur Barbiturates Screen Negative (Negative) Ur Phencyclidine Scrn Negative (Negative) Ur Amphetamine Screen Positive A (Negative) U Benzodiazepines Scrn Negative (Negative) Urine Cocaine Screen Negative (Negative) U Cannabinoids Screen Positive A (Negative) Influenza A (RT-PCR) Negative (Negative) Influenza B (RT-PCR) Negative (Negative) RSV (RT-PCR) Negative (Negative) SARS-CoV-2 RNA (RT-PCR) Negative (Negative) Critical Care Time Critical Care Time Critical Care Time: No Discharge Plan Discharge Clinical Impression: Vomiting, Drug abuse Patient Disposition: Home Condition: Stable Instructions: Acute Nausea and Vomiting (ED), Polysubstance Use Disorder (ED) Additional Instructions: Return if symptoms are worsening , call your family physician for appointment, take Tylenol as as needed for aches and pain, continue home medications. Patient Language: Slovak Prescriptions: New ondansetron 4 mg tablet,disintegrating 4 mg PO Q4H PRN (Reason: nausea and vomiting) 3 Days Qty: 10 0RF No Action doxycycline hyclate 100 mg tablet 100 mg PO BID 10 Days Qty: 20 0RF Follow-up/Referrals: Brayan Rosario MD [Primary Care Provider] -
[2024-07-10 23:13] LABS: Add Urine Microscopic? YES; Appearance Urine Clear (Clear); Bilirubin Urine Negative (Negative); Blood Urine Negative (Negative); Color Urine Yellow (Yellow); Glucose Urine UA Negative (Negative); Ketones Urine 1+ (Negative); Leukocyte Esterase Ur Trace LEU/UL (Negative); Nitrate Urine Negative (Negative); Protein Urine Trace (Negative); Specific Grav Ur 1.015 (1.010-1.020)
[2024-07-10 23:15] LABS: Pregnancy On Board Control Positive; Urine Pregnancy Test Negative
[2024-07-10] MEDS: MAG HYDROX/ALUMINUM HYD/SIMETH 30 ML, PHENobarb/HYOSCY/ATROPINE/SCOP 32.4 MG, LIDOCAINE... PO (23:17)
--- OUTSIDE RECORDS SUMMARY | 2024-07-10 23:17 | XMS_ITS | Clinical Summary ---
Author Organization [facility] Address [address] [place] [address] Care Team Providers Care Lodge Attendant Name Role Phone Brayan Rosario MD Primary Care Provider [phone] Source Comments [facility],non-owned Affiliates and Associated Physician Practices is amultiple site organization consisting of ambulatory clinics and hospital sitesin [place], [place], [place] and [place]. This disclosure is being madepursuant to the Care Everywhere program and may not contain all information available regarding this patient. Last updated 17.[facility] Allergies Active Allergy Reactions Criticality Noted Date [...] complete this topic Insurance ANTHEM Care Teams Lodge Attendant Relationship Specialty Start Date End Date Brayan Rosario MD PCP - General 12/30/17
[2024-07-10 23:19] LABS: Amphetamine Screen Urine Positive (Negative); Barbiturate Screen Urine Negative (Negative); Benzodiazepines Screen Urine Negative (Negative); Cannabinoid Screen Urine Positive (Negative); Cocaine Screen Urine Negative (Negative); Methadone Screen Urine Negative (Negative); Opiate Screen Urine Negative (Negative); Phencyclidine Screen Urine Negative (Negative)
[2024-07-10 23:22] LABS: Bacteria Urine Trace /hpf; RBC Urine 0-2 /hpf (0-2); Squamous Epithelial Cell Urine Rare /hpf (Few); WBC Urine 0-3 /hpf (0-3)
[2024-07-10] MEDS: ONDANSETRON HCL ODT 4 MG TABLET 8 MG PO (23:39)
[2024-07-10 23:40] LABS: Influenza A QL RT-PCR Negative (Negative); Influenza B QL RT-PCR Negative (Negative); RSV RNA, RT-PCR Negative (Negative); SARS-CoV-2 RNA PCR Negative (Negative)
[2024-07-11 00:07] VITALS: BP 136/72; PULSE 97; RESP 18; O2SAT 98
== END 2024-07-11 00:07 | disposition home or self-care (01) ==
PROVIDERS: Emergency Provider Emergency Medicine; PCP Family Medicine
DX: R11.10 Vomiting, unspecified (principal); F19.10 Other psychoactive substance abuse, uncomplicated; F17.210 Nicotine dependence, cigarettes, uncomplicated; Z20.822 Contact with and (suspected) exposure to COVID-19
CPT/HCPCS: 80307; 81001; 81025; 87637; 99283; A9270